=== PATIENT | female | born 1960 | race Hispanic/Latino ===

== ENCOUNTER 2017-08-08 21:04 | Emergency (ER) | payer BC ==
[2017-08-08] MEDS ORDERED: SODIUM CHLORIDE 0.9% 1000ML 1,000 ML IV ONE (21:29)
[2017-08-08 21:31] LABS: BASOPHILS % (AUTO) 0.4 % (0.0-5.0); EOSINOPHILS % (AUTO) 0.3 % (0.0-8.0); HEMATOCRIT 41.2 % (36-48); MEAN CORPUSCULAR HEMOGLOBIN 29.1 pg (27.0-33.0); MEAN CORPUSCULAR VOLUME 85.4 fL (79-99); MONOCYTES % (AUTO) 7.9 % (3.0-13.0); NEUTROPHILS % (AUTO) 75.4 % (40.0-77.0); PLATELET COUNT (AUTO) 311 K/uL (130-400); RED BLOOD CELL COUNT(AUTO) 4.83 MIL/uL (4.00-5.50); RED CELL DISTRIBUTION WIDTH 13.5 % (11.0-15.5); WHITE BLOOD COUNT (AUTO) 11.7 K/uL (4.8-10.8)
[2017-08-08] MEDS ORDERED: MORPHINE SULFATE 2 MG/ML 1ML SYG ONE ×2 (21:33→22:05)
[2017-08-08] MEDS ORDERED: ONDANSETRON HCL 4 MG/2 ML VIAL ONE (21:33)
[2017-08-08 21:39] LABS: APPEARANCE,URINE CLOUDY (CLEAR); BILIRUBIN,URINE Negative (NEGATIVE); GLUCOSE, URINE (UA) Negative (NEGATIVE); KETONES,URINE Negative (NEGATIVE); LEUKOCYTE ESTERASE ,URINE Large (NEGATIVE); NITRATE,URINE Positive (NEGATIVE); OCCULT BLOOD,URINE Large (NEGATIVE); PROTEIN,URINE 300 (NEGATIVE)
[2017-08-08 21:40] LABS: COLOR,URINE Brown (YELLOW)
[2017-08-08 21:42] LABS: BACTERIA,URINE Few /HPF (None Seen); RBC,URINE TNTC /HPF (0-1); SQUAMOUS EPITHELIAL CELL,UR None Seen /LPF (0-2); WBC,URINE 26-50 /HPF (0-1)
[2017-08-08 21:46] LABS: CREATININE 0.9 mg/dL (0.5-1.5)
[2017-08-08 21:53] LABS: BILIRUBIN,TOTAL 0.3 mg/dL (0.2-1.0); TOTAL PROTEIN, SERUM 8.3 g/dL (6.0-8.3)
[2017-08-08 22:02] LABS: BILIRUBIN,DIRECT 0.1 mg/dL (0.0-0.3)
[2017-08-08] MEDS ORDERED: POTASSIUM CHLORIDE 20 MEQ ERTAB PO ONE (22:05)
[2017-08-08] MEDS ORDERED: CEFTRIAXONE SODIUM 1 GM ONE (22:40)
== END 2017-08-08 23:12 | disposition home or self-care (01) ==
LOC: EDH 21:04
DX: N39.0 Urinary tract infection, site not specified (principal); R31.9 Hematuria, unspecified; R42 Dizziness and giddiness; I10 Essential (primary) hypertension; E78.5 Hyperlipidemia, unspecified; Z88.8 Allergy status to other drugs, medicaments and biological substances; Z79.899 Other long term (current) drug therapy
CPT/HCPCS: 36415; 74176; 80048; 80076; 81001; 85025; 96361; 96374; 96375; 96376; 99285; J0696; J2405; J7030

== ENCOUNTER 2018-11-17 18:01 | Emergency (ER) | payer BC, OTHER ==
[2018-11-17] MEDS ORDERED: ORPHENADRINE CITRATE 30 MG/ML ML ONE (19:26)
[2018-11-17] MEDS ORDERED: DIAZEPAM 5 MG TABLET ONE (19:27)
== END 2018-11-17 20:41 | disposition home or self-care (01) ==
LOC: EDH 18:01
DX: M54.16 Radiculopathy, lumbar region (principal); F41.9 Anxiety disorder, unspecified; E78.5 Hyperlipidemia, unspecified; I10 Essential (primary) hypertension; Z88.8 Allergy status to other drugs, medicaments and biological substances
CPT/HCPCS: 96372; 99283; J2360

== ENCOUNTER 2019-03-13 12:46 | Emergency (ER) | payer OTHER ==
[2019-03-13] MEDS ORDERED: DEXAMETHASONE SOD PHOSPHATE 10MG/ML 1ML VIAL ONE (13:36)
[2019-03-13] MEDS ORDERED: KETOROLAC TROMETHAMINE 60 MG/2 ML VIAL ONE (13:36)
[2019-03-13] MEDS ORDERED: DIAZEPAM 5 MG TABLET ONE (13:37)
== END 2019-03-13 14:34 | disposition home or self-care (01) ==
LOC: EDH 12:46
DX: G89.29 Other chronic pain (principal); M54.5 Low back pain; I10 Essential (primary) hypertension; E78.5 Hyperlipidemia, unspecified; F41.9 Anxiety disorder, unspecified; Z88.8 Allergy status to other drugs, medicaments and biological substances
CPT/HCPCS: 96372 ×2; 99284; J1100; J1885

== ENCOUNTER 2019-04-13 09:00 | Inpatient (IN) | payer BC ==
[~2019-04-13] VITALS: Ht 161.3 cm; Wt 63.5 kg
[2019-04-13 14:18] VITALS: BP 150/99
[2019-04-13 14:27] LABS: BASOPHILS % (AUTO) 0.3 % (0.0-5.0); EOSINOPHILS % (AUTO) 0.7 % (0.0-8.0); HEMATOCRIT 46.9 % (36-48); LYMPHOCYTES % (AUTO) 20.7 % (21.0-51.0); MEAN CORPUSCULAR HGB CONC 34.3 g/dL (32.0-36.0); MEAN CORPUSCULAR VOLUME 87.7 fL (79-99); MONOCYTES % (AUTO) 6.7 % (3.0-13.0); NEUTROPHILS % (AUTO) 71.6 % (40.0-77.0); NUCLEATED RED BLOOD CELLS 0.1 % (0.0-0.19); PLATELET COUNT (AUTO) 297 K/uL (130-400); RED BLOOD CELL COUNT(AUTO) 5.35 MIL/uL (4.00-5.50); RED CELL DISTRIBUTION WIDTH 14.1 % (11.0-15.5); WHITE BLOOD COUNT (AUTO) 8.7 K/uL (4.8-10.8)
[2019-04-13] MEDS ORDERED: ROSU10TA22 PO (14:36)
[2019-04-13] MEDS ORDERED: LISI-613 PO (14:36)
[2019-04-13 14:37] LABS: POTASSIUM 3.7 mmol/L (3.5-5.1)
[2019-04-13] MEDS ORDERED: PHARMACY COMMUNICATION MISC SCH (14:45)
--- NOTE | 2019-04-15 12:43 | NUR ---
EKG INFORMED DR. CHANCE OF ABNORMAL EKG. NO ORDERS RECEIVED. PROCEED WITH PLANNED PROCEDURE.
[2019-04-16] VITALS (23 sets, daily range): BP systolic 73–143; BP diastolic 32–94
[2019-04-16] MEDS ORDERED: CEFAZOLIN SODIUM 1 GM VIAL IVP SCH (06:00)
[2019-04-16] MEDS ORDERED: LACTATED RINGERS 1000ML 1,000 ML IV ONE (06:22)
[2019-04-16] MEDS ORDERED: LIDOCAINE PF 2% 5ML ABBOJECT ONE (07:05)
[2019-04-16] MEDS ORDERED: DEXAMETHASONE SOD PHOSPHATE 10MG/ML 1ML VIAL ONE (07:05)
[2019-04-16] MEDS ORDERED: PROPOFOL 10 MG/ML 20ML VIAL IV ONE (07:05)
[2019-04-16] MEDS ORDERED: SUCCINYLCHOLINE 200MG/10ML SYR ONE (07:05)
[2019-04-16] MEDS ORDERED: NEOSTIGMINE 5MG/5ML SYR IV ONE (07:06)
[2019-04-16] MEDS ORDERED: GLYCOPYRROLATE 1 MG/5 ML SYRINGE ONE (07:06)
[2019-04-16] MEDS ORDERED: ONDANSETRON HCL 4 MG/2 ML VIAL ONE (07:06)
[2019-04-16] MEDS ORDERED: ROCURONIUM 10MG/1ML SYR 10 MG/ML ML ONE (07:06)
[2019-04-16] MEDS ORDERED: MIDAZOLAM HCL 1 MG/ML 2ML VIAL ONE ×2 (07:06→07:18)
[2019-04-16] MEDS ORDERED: FENTANYL CITRATE PF 50 MCG/1 ML 2ML VIAL ONE ×2 (07:07→09:27)
[2019-04-16] MEDS ORDERED: BUPIVACAINE/EPI/PF 0.5% 30ML VIAL IJ ONE (07:09)
[2019-04-16] MEDS ORDERED: BACITRACIN 50,000 UNIT VIAL ONE (07:10)
[2019-04-16] MEDS ORDERED: DURAMORPH PF1 MG/ML 10ML AMP IV ONE (07:10)
[2019-04-16] MEDS ORDERED: THROMBIN-JMI 20000 UNIT KIT TP ONE (07:10)
[2019-04-16] MEDS: CEFAZOLIN SODIUM 1 GM VIAL IVP SCH ×4 (09:00→23:52)
[2019-04-16] MEDS ORDERED: ESMOLOL HCL 10 MG/ML 10 ML VIAL ONE (09:22)
[2019-04-16] MEDS ORDERED: SODIUM CHLORIDE 0.9% 10 ML VIAL IVP PRN (10:45)
[2019-04-16] MEDS ORDERED: MORPHINE SULFATE 2 MG/ML 1ML SYG IVP PRN (10:45)
[2019-04-16] MEDS ORDERED: HYDROCODONE/ACETAMINOPHEN 5/325 MG TAB PO PRN (10:45)
[2019-04-16] MEDS: DEXAMETHASONE SOD PHOSPHATE 4 MG/ML 1ML VIAL IVP SCH ×3 (10:45→23:52)
[2019-04-16] MEDS ORDERED: PROMETHAZINE HCL 25 MG/ML 1ML AMPULE IM PRN (10:45)
[2019-04-16] MEDS ORDERED: IBUP-2071 PO (12:51)
[2019-04-16] MEDS ORDERED: IBUPROFEN 800 MG TAB PO PRN (13:15)
[2019-04-16] MEDS: LACTATED RINGERS 1000ML 1,000 ML IV SCH ×2 (13:43→23:52)
[2019-04-16] MEDS ORDERED: ATORVASTATIN CALCIUM 20 MG TABLET PO SCH (21:00)
[2019-04-16] MEDS ORDERED: LISINOPRIL 20 MG TABLET PO SCH (21:00)
[2019-04-17 00:04] VITALS: BP 124/71
[2019-04-17] MEDS: CEFAZOLIN SODIUM 1 GM VIAL IVP SCH (03:53)
[2019-04-17] MEDS: DEXAMETHASONE SOD PHOSPHATE 4 MG/ML 1ML VIAL IVP SCH (03:53)
[2019-04-17 04:04] VITALS: BP 126/75
[2019-04-17 08:06] VITALS: BP 122/79
--- NOTE | 2019-04-17 09:00 | NUR ---
cm note spoke to darcy in insurance verification and states pt has been authorized as IP Auth [id number].
--- NOTE | 2019-04-17 09:05 | NUR ---
DISCHARGE PERFORMED LOWER BACK DRESSING CHANGE. MINIMAL SANGUINEOUS DRAINAGE NOTED ON SURGICAL GAUZE DRESSING WHEN REMOVED. LOWER BACK INCISION APPROXIMATED, ASYMPTOMATIC, 18 [address]AK[address] INTACT. CLEANED LOWER BACK INCISION WITH BETADINE, COVERED WITH NONADHERENT GAUZE AND SECURED WITH MEDIPORE TAPE. REMOVED 20G IV FROM LEFT FA, CATHETER TIP INTACT. PATIENT REPORTS URINATING TWICE IN TOILET SINCE PORTILLO CATHETER REMOVAL EARLY THIS MORNING. STAPLE REMOVAL KIT PROVIDED TO PATIENT AND INSTRUCTED TO TAKE TO SCHEDULED F/U APPT WITH DR. KEANE. PROVIDED DISCHARGE TEACHING REGARDING RX (TORADOL), CONTINUE HOME MEDICATIONS, DR. KEANE DISCHARGE INSTRUCTION SHEET REVIEWED AND PROVIDED TO PATIENT. ADVISED PATIENT AGAINST TAKING HOME MEDICATION IBUPROFEN WITH TORADOL BOTH MEDICATIONS ARE NSAIDS. WRITTEN RX PROVIDED BY DR. KEANE FOR TORADOL GIVEN TO PATIENT. PATIENT VERBALIZED UNDERSTANDING OF DISCHARGE TEACHING. PATIENT REPORTS NO DISCOMFORTS AND WILL BE DRIVEN HOME BY HER FAMILY.
== END 2019-04-17 09:20 | disposition home or self-care (01) | DRG 520 ==
LOC: EDSTATUS 09:00 → DAHIP 04-16 05:55 → 4AH 04-16 11:35
PROVIDERS: ADMIT Neurological Surgery; ATTEND Neurological Surgery
PROC: BR1B1ZZ Fluoroscopy of Lumbosacral Joint using Low Osmolar Contrast (ICD-10-PCS; 2019-04-16)
PROC: 4A11X4G Monitoring of Peripheral Nervous Electrical Activity, Intraoperative, External Approach (ICD-10-PCS; 2019-04-16)
PROC: 0SB40ZZ Excision of Lumbosacral Disc, Open Approach (ICD-10-PCS; principal; 2019-04-16 08:58)
PROC: 01NB0ZZ Release Lumbar Nerve, Open Approach (ICD-10-PCS; 2019-04-16 08:58)
PROC: 01NR0ZZ Release Sacral Nerve, Open Approach (ICD-10-PCS; 2019-04-16 08:58)
DX: M51.17 Intervertebral disc disorders with radiculopathy, lumbosacral region (principal); I10 Essential (primary) hypertension
CPT/HCPCS: 36415; 71045; 72020; 80051; 85025; 93005; 96374; A4344; G0378; J0330; J0690; J1100; J2001; J2250; J2274; J2405; J2550; J2704; J2710; J3010; J3490; J7030; J7120

== ENCOUNTER → 2021-11-17 | Outpatient (CLI) | payer BC ==
[~2021-11-17] MED LIST: GADOTERATE MEGLUMINE 10 MMOL/20 ML VIAL IV ONE; IBUP-2071 PO; LISI20TA24 PO; ROSU10TA22 PO
== END | disposition home or self-care (01) ==
LOC: RAH 07:41
PROVIDERS: ATTEND Family Medicine
DX: M47.26 Other spondylosis with radiculopathy, lumbar region (principal); M51.36 Other intervertebral disc degeneration, lumbar region; M47.816 Spondylosis without myelopathy or radiculopathy, lumbar region; M48.07 Spinal stenosis, lumbosacral region; M51.16 Intervertebral disc disorders with radiculopathy, lumbar region
CPT/HCPCS: 72158; A9575